=== PATIENT | female | born 2000 | race Caucasian/White ===

== ENCOUNTER 2018-11-11 03:05 | Emergency (ER) | payer MEDICAID, OTHER ==
[~2018-11-11] VITALS: Ht 154.9 cm; Wt 74.8 kg
[2018-11-11 03:18] VITALS: BP 123/70
--- NOTE | 2018-11-11 03:20 | NUR ---
PT TO ED C/O DYSURIA, HEMATURIA, AND SUPRAPUBIC PAIN RADIATING TO LOWER BACK. NO BLADDER DISTENTION NOTED. PT PLACED INTO BED, PENDING MD FUENTES.
--- NOTE | 2018-11-11 03:23 | NUR ---
PT PROVIDING URINE. AMBULATED TO BED 6 WITH VSS. ACCOMPANIED BY MOTHER.
--- NOTE | 2018-11-11 03:32 | NUR ---
Dr. Howard evaluating patient at bedside.
[2018-11-11] MEDS ORDERED: KETOROLAC 30 MG/ML VIAL IM ONE (03:40)
[2018-11-11] MEDS ORDERED: PHENAZOPYRIDINE 100 MG TAB PO ONE (03:40)
[2018-11-11 04:15] VITALS: BP 123/70
--- NOTE | 2018-11-11 04:15 | NUR ---
Patient discharged with v/s stable. Written and verbal after care instructions given and explained. Patient alert, oriented and verbalized understanding of instructions. Ambulatory with steady gait. All questions addressed prior to discharge. ID band removed. Patient advised to follow up with PMD. Rx of PYRIDIUM AND KEFLEX given. Patient educated on indication of medication including possible reaction and side effects. Opportunity to ask questions provided and answered.
== END 2018-11-11 04:15 | disposition home or self-care (01) ==
LOC: MED 03:05
DX: N39.0 Urinary tract infection, site not specified (principal)
CPT/HCPCS: 81002; 81025; 96372; 99283; J1885